=== PATIENT | female | born 1990 | race African-American/Black ===

== ENCOUNTER 2019-07-05 16:17 | Inpatient (IN) | payer OTHER ==
--- NOTE | 2019-07-05 16:47 | PDOC ---
History of Present Illness - General Chief Complaint: Seizure Stated Complaint: Seizure Time Seen by Provider: 07/05/19 16:47 - History of Present Illness Initial Comments: 07/05/19 18:13 29 year old with a history of IDDM, alcohol dependence presents from [facility] detox after having a witnessed seizure. She reports that her last drink was yesterday morning and she normally drinks 1 liter of vodka every day. She reports a headache and some nausea but denies any chest pain, shortness of breath abdominal pain or any other complaints. She denies any recent illness or fevers. She has had seziures in the past and states she had one yesterday while in rehab. She states she has seizures approx 1 every 2 months. She has no other complaints ant desires to go to detox. ROS GENERAL/CONSTITUTIONAL: No fever or chills. No weakness. HEAD, EYES, EARS, NOSE AND THROAT: No change in vision. No ear pain or discharge. No sore throat. CARDIOVASCULAR: No chest pain or shortness of breath RESPIRATORY: No cough, wheezing, or hemoptysis. GASTROINTESTINAL: No vomiting, diarrhea or constipation. GENITOURINARY: No dysuria, frequency, or change in urination. MUSCULOSKELETAL: No joint or muscle swelling or pain. No neck or back pain. SKIN: No rash NEUROLOGIC: No vertigo, loss of consciousness, or change in strength/sensation. PE GENERAL: Awake, alert, and fully oriented, in no acute distress HEAD: No signs of trauma, normocephalic, atraumatic EYES: PERRLA, EOMI, sclera anicteric, conjunctiva clear ENT: blood around the oropharynx NECK: Normal ROM, supple LUNGS: No distress, speaks full sentences, clear to auscultation anteriorly HEART: Regular rate and rhythm, normal S1 and S2, no murmurs, rubs or gallops, peripheral pulses normal and equal bilaterally. ABDOMEN: Soft, nontender, normoactive bowel sounds. No guarding, no rebound. No masses EXTREMITIES : Normal inspection, Normal range of motion, no edema. No clubbing or cyanosis. NEUROLOGICAL: Cranial nerves II through XII grossly intact. Normal speech, no focal sensorimotor deficits SKIN: Warm, Dry, normal turgor, no rashes or lesions noted MDM 29 year old with a history of IDDM, alcohol dependence presents from [facility] detox after having a witnessed seizure. She reports that her last drink was yesterday morning and she normally drinks 1 liter of vodka every day. DDX including but not limited to: alcohol withdrawal seizure r.o intracranial pathology W/U: - cbc, cmp, serum preg, ekg, cxr, head ct, lactic, coags TX: - librium, ativan, banana bag ED Course: Patient with witnessed seizure in the ED ativan, librium and banana bag given, fingerstick done -120s labs within normal etoh at 45.[address] without acute intracranial pathology EKG: sinus tachy at 108 bpm plan for admission for multiple etoh withdrawal seizures Natalie Le, PGY2 Emergency Medicine 07/05/19 20:18 07/05/19 20:21 Past History - Past Medical History Allergies/Adverse Reactions: Allergies Allergy/AdvReac Type Severity Reaction Status Date / Time No Known Allergies Allergy Verified 07/05/19 17:07 COPD: No Diabetes: Yes Seizures: Yes - Suicide/Smoking/Psychosocial Hx Smoking History: Never smoked Hx Alcohol Use: Yes Drug/Substance Use Hx: No *Physical Exam - Vital Signs Last Vital Signs Temp Pulse Resp BP Pulse Ox 99.2 F 109 H 18 126/70 100 07/05/19 16:18 07/05/19 16:18 07/05/19 16:18 07/05/19 16:18 07/05/19 16:18 ED Treatment Course - LABORATORY CBC & Chemistry Diagram: 07/05/19 18:05 07/05/19 18:05 *DC/Admit/Observation/Transfer Diagnosis at time of Disposition: Alcohol withdrawal seizure - Discharge Dispostion Condition at time of disposition: Stable Decision to Admit order: Yes - Referrals - Patient Instructions - Post Discharge Activity
[2019-07-05] MEDS ORDERED: FOLIC ACID INJECTION - 1 MG, THIAMINE HCL 100 MG, MULTIVIT INJECTION ADULT 10 ML in SOD... IVPB ONE (18:12)
[2019-07-05] MEDS ORDERED: chlordiazePOXIDE HCL 25 MG CAPSULE PO ONE (18:12)
[2019-07-05 18:20] LABS: BASO % 1.2 % (0-2.0); EOS % 0.3 % (0-4.5); HEMATOCRIT 31.9 % (32.4-45.2); HEMOGLOBIN 10.5 GM/dL (10.7-15.3); LYMPH % 42.1 % (8-40); MCH 28.9 pg (25.7-33.7); MCHC 32.8 g/dl (32.0-36.0); NEUT % 45.4 % (42.8-82.8); PLATELET COUNT 338 K/MM3 (134-434); RBC 3.62 M/mm3 (3.60-5.2); RDW 22.7 % (11.6-15.6); WHITE BLOOD COUNT 6.9 K/mm3 (4.0-10.0)
[2019-07-05] MEDS ORDERED: LORazepam 2 MG/ML SDV VIAL ONE (18:21)
[2019-07-05] MEDS ORDERED: chlordiazePOXIDE HCL 25 MG CAPSULE ONE ×2 (18:21→22:01)
[2019-07-05 18:35] LABS: ALBUMIN 4.2 g/dl (3.4-5.0); ALK PHOS 158 U/L (45-117); ANION GAP 19 MMOL/L (8-16); BILIRUBIN,TOTAL 0.9 mg/dL (0.2-1); BLOOD UREA NITROGEN 3.5 mg/dL (7-18); CALCIUM 8.9 mg/dL (8.5-10.1); CHLORIDE 100 mmol/L (98-107); CO2 19 mmol/L (21-32); CREATININE 0.6 mg/dL (0.55-1.3); GLUCOSE,RANDOM 120 mg/dL (74-106); POTASSIUM 3.6 mmol/L (3.5-5.1); SGOT/AST 171 U/L (15-37); SGPT/ALT 74 U/L (13-61); SODIUM 139 mmol/L (136-145); TOT PROT 8.6 g/dl (6.4-8.2)
--- NOTE | 2019-07-05 19:46 | PDOC ---
Documentation entered by Najma Tomas SCRIBE, acting as scribe for Malini Moscoso DO. Malini Moscoso DO: This documentation has been prepared by the Genoveva ambrocio Adrianna, SCRIBE, under my direction and personally reviewed by me in its entirety. I confirm that the documentation accurately reflects all work, treatment, procedures, and medical decision making performed by me. Attending Attestation - Resident Resident Name: Natalie Le - ED Attending Attestation I have performed the following: I have examined & evaluated the patient, The case was reviewed & discussed with the resident, I agree w/resident's findings & plan - HPI HPI: The patient is a 29 year old female, with a significant PMH of EtOH dependence and IDDM, who presents to the ED BIBA from [facility] s/p seizure. As per [facility], patient was sitting in a chair when she began seizing with active bleeding from the mouth. [facility] staff was able to move the patient to the floor, turn her on her side, and support her neck. [facility] nurse notes the seizure stopped spontaneously, and patient was postictal for a short amount of time. They deny any fall or head contusion, and notes she was alert and able to sit up prior to arrival. She denies any other complaints while in the ED. Allergies: NKA, NKDA Surgical History: None reported Social History: EtOH dependence - Physicial Exam PE: Agree with resident exam. - Critical Care Time Total Critical Care Time: 45 Critical Care Statement: The care of this patient involved high complexity decision making to prevent further life threatening deterioration of the patient 's condition and/or to evaluate & treat vital organ system(s) failure or risk of failure. - Medical Decision Making 29 year old female with alcohol withdrawal seizure, sent form [facility]. Patient had witnessed seizure while in the ED. Plan for benzo, librium, ativan IV, CT head, and admission to medical team for further evaluation.
[2019-07-05 20:57] LABS: ANISOCYTOSIS 3+; MACROCYTOSIS 2+
--- NOTE | 2019-07-05 21:01 | HP ---
Admitting History and Physical - Primary Care Physician PCP: Goyo Russell - Admission History of Present Illness: 29 year old female, with a significant PMH of EtOH dependence and IDDM, who presents to the ED BIBA from [facility] s/p seizure. As per [facility], patient was sitting in a chair when she began seizing with active bleeding from the mouth. [facility] staff was able to move the patient to the floor, turn her on her side, and support her neck. [facility] nurse notes the seizure stopped spontaneously, and patient was postictal for a short amount of time. They deny any fall or head contusion, and notes she was alert and able to sit up prior to arrival. She denies any other complaints while in the ED. - Past Medical History Endocrine: Yes: Diabetes Mellitus - Smoking History Smoking history: Never smoked - Alcohol/Substance Use Hx Alcohol Use: Yes Home Medications - Allergies Allergies/Adverse Reactions: Allergies Allergy/AdvReac Type Severity Reaction Status Date / Time No Known Allergies Allergy Verified 07/05/19 17:07 Physical Examination Vital Signs: Vital Signs Temperature 99.0 F 07/05/19 18:23 Pulse Rate 111 H 07/05/19 18:23 Respiratory Rate 17 07/05/19 18:23 Blood Pressure 140/96 07/05/19 18:23 O2 Sat by Pulse Oximetry (%) 97 07/05/19 18:23 HENT: Yes: WNL Cardiovascular: Yes: Regular Rate and Rhythm Respiratory: Yes: CTA Bilaterally Gastrointestinal: Yes: Normal Bowel Sounds Extremities: Yes: WNL Neurological: Yes: Alert, Oriented Labs: CBC, BMP 07/05/19 18:05 07/05/19 18:05 Problem List - Problems (1) Alcohol withdrawal seizure Assessment/Plan: start librium prn ativan Code(s): F10.239 - ALCOHOL DEPENDENCE WITH WITHDRAWAL, UNSPECIFIED; R56.9 - UNSPECIFIED CONVULSIONS (2) Diabetes Assessment/Plan: monitor Code(s): E11.9 - TYPE 2 DIABETES MELLITUS WITHOUT COMPLICATIONS Assessment/Plan Laboratory Tests 07/05/19 07/05/19 07/05/19 18:05 18:05 18:05 WBC RBC Hgb Hct MCV MCH MCHC RDW Plt Count MPV Absolute Neuts (auto) Neutrophils % Lymphocytes % Monocytes % Eosinophils % Basophils % Nucleated RBC % Anisocytosis Microcytosis Macrocytosis Sodium Potassium Chloride Carbon Dioxide Anion Gap BUN Creatinine Est GFR (CKD-EPI)AfAm Est GFR (CKD-EPI)NonAf POC Glucometer Random Glucose Calcium Total Bilirubin AST ALT Alkaline Phosphatase Total Protein Albumin Serum , Qual Negative Salicylates <1.7 Acetaminophen --noresult-- Alcohol, Quantitative 45.8 H 07/05/19 07/05/19 07/05/19 18:05 18:05 18:43 WBC 6.9 RBC 3.62 Hgb 10.5 L Hct 31.9 L MCV 88.0 MCH 28.9 MCHC 32.8 RDW 22.7 H Plt Count 338 MPV 7.0 L Absolute Neuts (auto) 3.1 Neutrophils % 45.4 Lymphocytes % 42.1 H Monocytes % 11.0 H Eosinophils % 0.3 Basophils % 1.2 Nucleated RBC % 0 Anisocytosis 3+ Microcytosis 2+ Macrocytosis 2+ Sodium 139 Potassium 3.6 Chloride 100 Carbon Dioxide 19 L Anion Gap 19 H BUN 3.5 L Creatinine 0.6 Est GFR (CKD-EPI)AfAm 142.76 Est GFR (CKD-EPI)NonAf 123.17 POC Glucometer 142 Random Glucose 120 H Calcium 8.9 Total Bilirubin 0.9 AST 171 H ALT 74 H Alkaline Phosphatase 158 H Total Protein 8.6 H Albumin 4.2 Serum , Qual Salicylates Acetaminophen Alcohol, Quantitative Active Medications Generic Name Dose Route Start Last Admin Trade Name Hugo PRN Reason Stop Dose Admin Folic Acid 1 mg/ Thiamine HCl 1,000 mls @ 125 mls/hr 07/05/19 18:12 07/05/19 18:20 100 mg/ Multivitamins/Minerals IVPB 07/06/19 02:11 125 mls/hr 10 ml/ Sodium Chloride ONCE ONE Administration Active Medications Generic Name Dose Route Start Last Admin Trade Name Hugo PRN Reason Stop Dose Admin Acetaminophen 650 mg 07/05/19 23:06 07/06/19 00:56 Tylenol - PO 650 mg Q6H PRN Administration FEVER Chlordiazepoxide HCl 50 mg 07/05/19 23:00 07/06/19 11:00 Librium - PO 50 mg [id number] NUBIA Administration Heparin Sodium (Porcine) 5,000 unit 07/05/19 22:00 07/06/19 11:00 Heparin - SQ 5,000 unit BID NUBIA Administration Lorazepam 1 mg 07/05/19 21:08 Ativan Injection - IVPUSH Q6H PRN seizure
[2019-07-05] MEDS ORDERED: LORazepam 2 MG/ML SDV VIAL IVPUSH PRN (21:08)
[2019-07-05] MEDS ORDERED: HEPARIN NA (PORCINE) 5,000 UNITS/ML 1ML VIAL ONE (22:01)
[2019-07-05] MEDS: HEPARIN NA (PORCINE) 5,000 UNITS/ML 1ML VIAL SQ SCH (22:09)
[2019-07-05] MEDS: chlordiazePOXIDE HCL 25 MG CAPSULE PO SCH (23:16)
[2019-07-06] MEDS ORDERED: ACETAMINOPHEN 325 MG TABLET (FP) ONE ×2 (00:54→21:01)
[2019-07-06] MEDS: ACETAMINOPHEN 325 MG TABLET (FP) PO PRN ×2 (00:56→21:05)
[2019-07-06] MEDS ORDERED: chlordiazePOXIDE 5 MG CAPSULE ONE ×2 (05:41→05:44)
[2019-07-06] MEDS: chlordiazePOXIDE HCL 25 MG CAPSULE PO SCH ×4 (05:45→23:22)
[2019-07-06] MEDS ORDERED: chlordiazePOXIDE HCL 25 MG CAPSULE ONE ×3 (05:45→18:15)
[2019-07-06 07:36] LABS: COCAINE, UR NEGATIVE ng/ml (CUTOFF=300); METHADONE, UR NEGATIVE ng/ml (CUTOFF=300); OPIATES, URI NEGATIVE ng/ml (CUTOFF=300); PHENCYCLIDINE,URINE NEGATIVE ng/ml (CUTOFF=25); URINE AMPHETAMINES NEGATIVE ng/ml (CUTOFF=500); URINE BARBITURATES NEGATIVE ng/ml (CUTOFF=200)
[2019-07-06 07:43] LABS: URINE BENZODIAZEPINES POSITIVE ng/ml (CUTOFF=200)
[2019-07-06 07:49] LABS: BASO % 1.1 % (0-2.0); EOS % 0.4 % (0-4.5); HEMATOCRIT 30.2 % (32.4-45.2); HEMOGLOBIN 10.2 GM/dL (10.7-15.3); LYMPH % 25.2 % (8-40); MCH 29.3 pg (25.7-33.7); MCHC 33.8 g/dl (32.0-36.0); MEAN CELL VOLUME 86.5 fl (80-96); MEAN PLT VOLUME 7.3 fl (7.5-11.1); MONO % 8.7 % (3.8-10.2); NEUT % 64.6 % (42.8-82.8); PLATELET COUNT 242 K/MM3 (134-434); RBC 3.49 M/mm3 (3.60-5.2); RDW 22.1 % (11.6-15.6); WHITE BLOOD COUNT 6.3 K/mm3 (4.0-10.0)
[2019-07-06 08:08] LABS: BILIRUBIN,TOTAL 3.1 mg/dL (0.2-1); BLOOD UREA NITROGEN 3.4 mg/dL (7-18); CALCIUM 8.6 mg/dL (8.5-10.1); CREATININE 0.5 mg/dL (0.55-1.3); POTASSIUM 3.5 mmol/L (3.5-5.1); TOT PROT 7.8 g/dl (6.4-8.2)
[2019-07-06 08:17] LABS: EPI CELLS 19.9 /HPF (0-5/HPF); HYALINE CASTS 19 /lpf (0-8); URINE APPEARANCE CLOUDY; URINE BACTERIA 708.8 /hpf (NEGATIVE); URINE BILIRUBIN NEGATIVE (NEGATIVE); URINE COLOR YELLOW; URINE GLUCOSE (UA) NEGATIVE (NEGATIVE); URINE KETONE NEGATIVE (NEGATIVE); URINE LEUK ESTERASE TRACE (NEGATIVE); URINE NITRITE NEGATIVE (NEGATIVE); URINE PROTEIN NEGATIVE (NEGATIVE); URINE RBC 2 /hpf (0-4); URINE WBC 30 /hpf (0-5)
[2019-07-06] MEDS: HEPARIN NA (PORCINE) 5,000 UNITS/ML 1ML VIAL SQ SCH ×2 (11:00→22:55)
[2019-07-06] MEDS ORDERED: HEPARIN NA (PORCINE) 5,000 UNITS/ML 1ML VIAL ONE (11:56)
--- NOTE | 2019-07-06 16:12 | EKG ---
Test Reason : Blood Pressure : / mmHG Vent. Rate : 108 BPM Atrial Rate : 108 BPM P-R Int : 150 ms QRS Dur : 072 ms QT Int : 338 ms P-R-T Axes : 054 022 047 degrees QTc Int : 452 ms SINUS TACHYCARDIA POSSIBLE LEFT ATRIAL ENLARGEMENT BORDERLINE ECG NO PREVIOUS ECGS AVAILABLE Confirmed by MD SETH, MER ([id number]) on 07/06/2019 4:11:57 PM Referred By: Confirmed By:MER ANN MD
--- NOTE | 2019-07-06 16:59 | PN ---
Progress Note, Physician - Current Medication List Current Medications: Active Medications Acetaminophen (Tylenol -) 650 mg PO Q6H PRN PRN Reason: FEVER Last Admin: 07/06/19 00:56 Dose: 650 mg Chlordiazepoxide HCl (Librium -) 50 mg PO [id number] NUBIA Last Admin: 07/06/19 11:00 Dose: 50 mg Heparin Sodium (Porcine) (Heparin -) 5,000 unit SQ BID NUBIA Last Admin: 07/06/19 11:00 Dose: 5,000 unit Lorazepam (Ativan Injection -) 1 mg IVPUSH Q6H PRN PRN Reason: seizure - Objective Vital Signs: Vital Signs Temperature 98.5 F 07/06/19 06:40 Pulse Rate 100 H 07/06/19 14:00 Respiratory Rate 17 07/06/19 14:00 Blood Pressure 130/88 07/06/19 14:00 O2 Sat by Pulse Oximetry (%) 100 07/06/19 14:00 Constitutional: Yes: No Distress HENT: Yes: Atraumatic Neck: Yes: Supple Cardiovascular: Yes: Regular Rate and Rhythm Respiratory: Yes: CTA Bilaterally Gastrointestinal: Yes: Normal Bowel Sounds Extremities: Yes: WNL Edema: No Peripheral Pulses WNL: Yes Neurological: Yes: Alert, Oriented Labs: CBC, BMP 07/06/19 07:00 07/06/19 07:00 Problem List - Problems (1) Alcohol withdrawal seizure Assessment/Plan: on librium prn ativan Code(s): F10.239 - ALCOHOL DEPENDENCE WITH WITHDRAWAL, UNSPECIFIED; R56.9 - UNSPECIFIED CONVULSIONS (2) Diabetes Assessment/Plan: monitor Code(s): E11.9 - TYPE 2 DIABETES MELLITUS WITHOUT COMPLICATIONS
--- NOTE | 2019-07-06 17:58 | DS ---
Physical Examination Vital Signs: Vital Signs Temperature 98.5 F 07/06/19 06:40 Pulse Rate 100 H 07/06/19 14:00 Respiratory Rate 17 07/06/19 14:00 Blood Pressure 130/88 07/06/19 14:00 O2 Sat by Pulse Oximetry (%) 100 07/06/19 14:00 Constitutional: Yes: No Distress HENT: Yes: Atraumatic Neck: Yes: Supple Cardiovascular: Yes: Regular Rate and Rhythm Respiratory: Yes: CTA Bilaterally Gastrointestinal: Yes: Normal Bowel Sounds Extremities: Yes: WNL Edema: No Neurological: Yes: Alert, Oriented Labs: CBC, BMP 07/06/19 07:00 07/06/19 07:00 Discharge Summary Reason For Visit: ALCOHOL WITHDRAWAL SEIZURE Current Active Problems Alcohol withdrawal seizure (Acute) Diabetes (Acute) Condition: Stable - Instructions Diet, Activity, Other Instructions: to [facility] for detox - Home Medications Comprehensive Discharge Medication List: dc to [facility] for detox
[2019-07-06] MEDS ORDERED: methylPREDNISolone NA SUCC 40 MG/1 ML VIAL ONE (18:56)
[2019-07-07 01:18] VITALS: BMI 24.0
[2019-07-07] MEDS: ACETAMINOPHEN 325 MG TABLET (FP) PO PRN (05:35)
[2019-07-07] MEDS: chlordiazePOXIDE HCL 25 MG CAPSULE PO SCH ×4 (05:35→23:01)
[2019-07-07] MEDS: HEPARIN NA (PORCINE) 5,000 UNITS/ML 1ML VIAL SQ SCH ×2 (11:02→21:13)
--- NOTE | 2019-07-07 13:07 | CONSULT ---
Consult Detox [facility] Reason for Current Admission/Consult: Patient was admitted from [facility] after suffering a seizure. Referred by:: Drew - History History of Present Illness: 29 year old female with history of alcohol dependence. She has been drinking heavily for the past 5 years but never suffered a seizure from withdrawals. She stated that her last drink was 2 days prior to her incident at [facility]. While in assessment for admission to detox, she apparently had a seizure and was in postictal state and then tansferred to [facility]. She has been here since 07/05/19. Her PMH is significant for IDDM and she is on injectable insulin as well as fast acting insulin prior to meals. - History Source History Provided By: Patient Limitations to Obtaining History: No Limitations - Alcohol/Substance Use Hx Alcohol Use: Yes (1 pint of vodka or heavy liquor per day.) Hx Substance Use: No Hx Substance Use Treatment: No - Current Drug/Alcohol Use Alcohol Route: Oral Frequency: Daily Amount used: 1pint per day Age of first use: 17 Date of Last Use: 07/02/19 - Past Medical History ...LMP: 05/26/19 ...: No Endocrine: Yes: Diabetes Mellitus - Significant Medical Findings: Patient is alert and oriented x3 at this time. She has some lacerations on her lips with bruising. cor: S1, S2, no murmurs or gallops, RRR Lungs: clear to auscultation B/L Abd: Benign, positive bowel sounds. Ext: FROM, good pulses B/L CIWA Score - CIWA Score Nausea/Vomitin-Mild Nausea/No Vomiting Muscle Tremors: 1-None Visible, but [place] Anxiety: 0-No Anxiety, at Ease Agitation: 1-Slight > Activity Paroxysmal Sweats: No Perspiration Orientation: 0-Oriented Tacttile Disturbances: 0-None Auditory Disturbances: 0-None Visual Disturbances: 0-None Headache: 1-Very Mild CIWA-Ar Total Score: 4 Assessment Plan - Diagnosis (1) Alcohol withdrawal seizure Status: Acute (2) Diabetes Status: Acute - Plan Plan: 1. Seizure: Not clear if patient had seizure from withdrawal of alcohol alone. Unlikely that it was a seizure secondary to hypoglycemia as FS at [facility] was normal. No history of seizure in the past. She might benefit from EEG to rule out a primary seizure disorder. It is more likely that it was a withdrawal seizure. 2. Alcohol Dependence with complicated withdrawal: She can be transferred if she is medically stable now for continuation of detox or entry into rehab. Continue Librium until discharge and transfer. 3. IDDM: She is being covered now with injectable insulins. She will need ongoing primary care upon discharge to help her monitor and manage her IDDM. Dr. Goodwin - Medication Detox Regimen/Protocol: Librium (can be transferred to continue librium detox.)
--- NOTE | 2019-07-07 18:57 | PN ---
Progress Note, Physician History of Present Illness: doing well - Current Medication List Current Medications: Active Medications Acetaminophen (Tylenol -) 650 mg PO Q6H PRN PRN Reason: FEVER Last Admin: 07/07/19 05:35 Dose: 650 mg Chlordiazepoxide HCl (Librium -) 50 mg PO [id number] NUBIA Last Admin: 07/07/19 16:35 Dose: 50 mg Heparin Sodium (Porcine) (Heparin -) 5,000 unit SQ BID NUBIA Last Admin: 07/07/19 11:02 Dose: 5,000 unit Lorazepam (Ativan Injection -) 1 mg IVPUSH Q6H PRN PRN Reason: seizure - Objective Vital Signs: Vital Signs Temperature 97.9 F 07/07/19 13:36 Pulse Rate 101 H 07/07/19 13:36 Respiratory Rate 16 07/07/19 13:36 Blood Pressure 118/70 07/07/19 13:36 O2 Sat by Pulse Oximetry (%) 100 07/07/19 09:00 Constitutional: Yes: No Distress HENT: Yes: Atraumatic Neck: Yes: Supple Cardiovascular: Yes: Regular Rate and Rhythm Respiratory: Yes: CTA Bilaterally Gastrointestinal: Yes: Normal Bowel Sounds Extremities: Yes: WNL Edema: No Peripheral Pulses WNL: Yes Neurological: Yes: Alert, Oriented Labs: CBC, BMP 07/06/19 07:00 07/06/19 07:00 Problem List - Problems (1) Alcohol withdrawal seizure Assessment/Plan: on librium protocol prn ativan will order eeg as per detox md recommendation Code(s): F10.239 - ALCOHOL DEPENDENCE WITH WITHDRAWAL, UNSPECIFIED; R56.9 - UNSPECIFIED CONVULSIONS (2) Diabetes Assessment/Plan: monitor Code(s): E11.9 - TYPE 2 DIABETES MELLITUS WITHOUT COMPLICATIONS
[2019-07-08] MEDS: chlordiazePOXIDE HCL 25 MG CAPSULE PO SCH ×3 (05:07→17:33)
[2019-07-08] MEDS: HEPARIN NA (PORCINE) 5,000 UNITS/ML 1ML VIAL SQ SCH (10:23)
--- NOTE | 2019-07-08 14:06 | DS ---
Physical Examination Vital Signs: Vital Signs Temperature 99.0 F 07/08/19 13:47 Pulse Rate 99 H 07/08/19 13:47 Respiratory Rate 16 07/08/19 13:47 Blood Pressure 110/60 07/08/19 13:47 O2 Sat by Pulse Oximetry (%) 99 07/08/19 09:00 Labs: CBC, BMP 07/06/19 07:00 07/06/19 07:00 Discharge Summary Reason For Visit: ALCOHOL WITHDRAWAL SEIZURE Current Active Problems Alcohol withdrawal seizure (Acute) Diabetes (Acute) Condition: Stable - Instructions Diet, Activity, Other Instructions: to [facility] for detox eeg can be done as out patient dr power aware of discharge - Home Medications Comprehensive Discharge Medication List: Ambulatory Orders Humalog 07/07/19 Levemir Vial 10 units SQ DAILY 07/07/19 dr power aware of dc
--- NOTE | 2019-07-08 19:36 | PN ---
Progress Note, Physician History of Present Illness: doing well - Current Medication List Current Medications: Active Medications Acetaminophen (Tylenol -) 650 mg PO Q6H PRN PRN Reason: FEVER Last Admin: 07/07/19 05:35 Dose: 650 mg Chlordiazepoxide HCl (Librium -) 25 mg PO [id number] NUBIA Last Admin: 07/08/19 17:33 Dose: 25 mg Heparin Sodium (Porcine) (Heparin -) 5,000 unit SQ BID NUBIA Last Admin: 07/08/19 10:23 Dose: 5,000 unit Lorazepam (Ativan Injection -) 1 mg IVPUSH Q6H PRN PRN Reason: seizure - Objective Vital Signs: Vital Signs Temperature 98.5 F 07/08/19 17:35 Pulse Rate 102 H 07/08/19 17:35 Respiratory Rate 18 07/08/19 17:35 Blood Pressure 125/69 07/08/19 17:35 O2 Sat by Pulse Oximetry (%) 99 07/08/19 09:00 Constitutional: Yes: No Distress HENT: Yes: Atraumatic Neck: Yes: Supple Cardiovascular: Yes: Regular Rate and Rhythm Respiratory: Yes: CTA Bilaterally Gastrointestinal: Yes: Normal Bowel Sounds Extremities: Yes: WNL Edema: No Peripheral Pulses WNL: Yes Neurological: Yes: Alert, Oriented Labs: CBC, BMP 07/06/19 07:00 07/06/19 07:00 Problem List - Problems (1) Alcohol withdrawal seizure Assessment/Plan: on librium protocol prn ativan Code(s): F10.239 - ALCOHOL DEPENDENCE WITH WITHDRAWAL, UNSPECIFIED; R56.9 - UNSPECIFIED CONVULSIONS (2) Diabetes Assessment/Plan: monitor Code(s): E11.9 - TYPE 2 DIABETES MELLITUS WITHOUT COMPLICATIONS Assessment/Plan awaiting bed at [facility]
[2019-07-09] MEDS: HEPARIN NA (PORCINE) 5,000 UNITS/ML 1ML VIAL SQ SCH ×3 (00:06→22:27)
[2019-07-09] MEDS: chlordiazePOXIDE HCL 25 MG CAPSULE PO SCH ×5 (00:07→22:27)
[2019-07-09] MEDS ORDERED: INSULIN (LEVEMIR) 100 UNITS/ML UNITS SQ SCH (09:45)
--- NOTE | 2019-07-09 11:46 | DS ---
Physical Examination Vital Signs: Vital Signs Temperature 98.0 F 07/09/19 09:00 Pulse Rate 95 H 07/09/19 09:00 Respiratory Rate 18 07/09/19 09:00 Blood Pressure 120/66 07/09/19 09:00 O2 Sat by Pulse Oximetry (%) 100 07/09/19 09:00 Constitutional: Yes: No Distress HENT: Yes: Atraumatic Neck: Yes: Supple Cardiovascular: Yes: Regular Rate and Rhythm Respiratory: Yes: CTA Bilaterally Gastrointestinal: Yes: Normal Bowel Sounds Extremities: Yes: WNL Edema: No Neurological: Yes: Alert, Oriented Labs: CBC, BMP 07/06/19 07:00 07/06/19 07:00 Discharge Summary Reason For Visit: ALCOHOL WITHDRAWAL SEIZURE Current Active Problems Alcohol withdrawal seizure (Acute) Diabetes (Acute) Condition: Stable - Instructions Diet, Activity, Other Instructions: to [facility] eeg done fu neurologist dr power aware of discharge Referrals: Aravind Nunez MD [Staff Physician] - Disposition: HOME - Home Medications Comprehensive Discharge Medication List: Ambulatory Orders Humalog 07/07/19 Levemir Vial 10 units SQ DAILY 07/07/19 dr power aware [facility] to [facility] ..awaiting bed
[2019-07-09] MEDS ORDERED: INSULIN (NOVOLOG) ASPART 100 UNITS/ML 10ML VIAL SQ ONE (22:15)
[2019-07-10] MEDS: chlordiazePOXIDE HCL 25 MG CAPSULE PO SCH ×2 (05:37→10:34)
[2019-07-10] MEDS: INSULIN (LEVEMIR) 100 UNITS/ML UNITS SQ SCH (06:51)
[2019-07-10] MEDS: HEPARIN NA (PORCINE) 5,000 UNITS/ML 1ML VIAL SQ SCH ×2 (10:34→21:13)
[2019-07-10] MEDS ORDERED: chlordiazePOXIDE HCL 25 MG CAPSULE PO PRN (11:44)
--- NOTE | 2019-07-10 11:44 | PN ---
Progress Note, Physician - Current Medication List Current Medications: Active Medications Acetaminophen (Tylenol -) 650 mg PO Q6H PRN PRN Reason: FEVER Last Admin: 07/07/19 05:35 Dose: 650 mg Chlordiazepoxide HCl (Librium -) 25 mg PO [id number] [facility] Last Admin: 07/10/19 10:34 Dose: 25 mg Heparin Sodium (Porcine) (Heparin -) 5,000 unit SQ BID [facility] Last Admin: 07/10/19 10:34 Dose: 5,000 unit Insulin Detemir (Levemir Vial) 10 units SQ ACBK [facility] Last Admin: 07/10/19 06:51 Dose: 10 units Lorazepam (Ativan Injection -) 1 mg IVPUSH Q6H PRN PRN Reason: seizure - Objective Vital Signs: Vital Signs Temperature 97.9 F 07/10/19 10:36 Pulse Rate 82 07/10/19 10:36 Respiratory Rate 16 07/10/19 10:36 Blood Pressure 102/57 L 07/10/19 10:36 O2 Sat by Pulse Oximetry (%) 100 07/10/19 10:00 Constitutional: Yes: No Distress HENT: Yes: Atraumatic Neck: Yes: Supple Cardiovascular: Yes: Regular Rate and Rhythm Respiratory: Yes: CTA Bilaterally Gastrointestinal: Yes: Normal Bowel Sounds Extremities: Yes: WNL Edema: No Neurological: Yes: Alert, Oriented Labs: CBC, BMP 07/06/19 07:00 07/06/19 07:00 Problem List - Problems (1) Alcohol withdrawal seizure Assessment/Plan: on librium prn stable Code(s): F10.239 - ALCOHOL DEPENDENCE WITH WITHDRAWAL, UNSPECIFIED; R56.9 - UNSPECIFIED CONVULSIONS (2) Diabetes Assessment/Plan: monitor Code(s): E11.9 - TYPE 2 DIABETES MELLITUS WITHOUT COMPLICATIONS Assessment/Plan awaiting bed at [facility]
[2019-07-10 13:18] LABS: BASO % 0.8 % (0-2.0); EOS % 3.3 % (0-4.5); HEMATOCRIT 30.5 % (32.4-45.2); HEMOGLOBIN 10.1 GM/dL (10.7-15.3); LYMPH % 26.6 % (8-40); MCH 29.3 pg (25.7-33.7); MCHC 33.1 g/dl (32.0-36.0); MEAN CELL VOLUME 88.6 fl (80-96); MEAN PLT VOLUME 7.8 fl (7.5-11.1); MONO % 16.9 % (3.8-10.2); NEUT % 52.4 % (42.8-82.8); PLATELET COUNT 169 K/MM3 (134-434); RBC 3.44 M/mm3 (3.60-5.2); RDW 22.5 % (11.6-15.6); WHITE BLOOD COUNT 4.5 K/mm3 (4.0-10.0)
[2019-07-10] MEDS: INSULIN SLIDING SCALE (NOVOLOG) 1 VIAL SQ SCH ×3 (13:38→21:14)
[2019-07-10 13:56] LABS: ALBUMIN 3.7 g/dl (3.4-5.0); BILIRUBIN,TOTAL 0.7 mg/dL (0.2-1); BLOOD UREA NITROGEN 7.6 mg/dL (7-18); CALCIUM 9.1 mg/dL (8.5-10.1); CREATININE 0.6 mg/dL (0.55-1.3); POTASSIUM 4.5 mmol/L (3.5-5.1); TOT PROT 7.8 g/dl (6.4-8.2)
[2019-07-10 14:02] LABS: ANISOCYTOSIS 1+; MACROCYTOSIS 1+; PLATELET ESTIMATE NORMAL; TARGET CELLS 1+; TEAR DROP CELLS 1+
[2019-07-10] MEDS ORDERED: INSULIN SLIDING SCALE (NOVOLOG) 1 VIAL SQ SCH (16:30)
[2019-07-10] MEDS ORDERED: INSULIN (NOVOLOG) ASPART 100 UNITS/ML 10ML VIAL ONE (21:00)
[2019-07-11] MEDS: INSULIN SLIDING SCALE (NOVOLOG) 1 VIAL SQ SCH ×4 (06:33→21:09)
[2019-07-11] MEDS: INSULIN (LEVEMIR) 100 UNITS/ML UNITS SQ SCH (06:34)
[2019-07-11] MEDS ORDERED: INSULIN (NOVOLOG) ASPART 100 UNITS/ML 10ML VIAL ONE ×2 (08:33→19:58)
[2019-07-11] MEDS: HEPARIN NA (PORCINE) 5,000 UNITS/ML 1ML VIAL SQ SCH ×2 (09:02→21:09)
[2019-07-11] MEDS: ACETAMINOPHEN 325 MG TABLET (FP) PO PRN (10:57)
--- NOTE | 2019-07-11 13:52 | PN ---
Progress Note, Physician History of Present Illness: doing well - Current Medication List Current Medications: Active Medications Acetaminophen (Tylenol -) 650 mg PO Q6H PRN PRN Reason: FEVER Last Admin: 07/11/19 10:57 Dose: 650 mg Chlordiazepoxide HCl (Librium -) 25 mg PO [id number] PRN PRN Reason: AGITATION Heparin Sodium (Porcine) (Heparin -) 5,000 unit SQ BID NUBIA Last Admin: 07/11/19 09:02 Dose: 5,000 unit Insulin Aspart (Novolog Vial Sliding Scale -) 1 vial SQ ACHS [facility]; Protocol Last Admin: 07/11/19 11:42 Dose: 6 units Insulin Detemir (Levemir Vial) 10 units SQ ACBK [facility] Last Admin: 07/11/19 06:34 Dose: 10 units Lorazepam (Ativan Injection -) 1 mg IVPUSH Q6H PRN PRN Reason: seizure - Objective Vital Signs: Vital Signs Temperature 98.9 F 07/11/19 08:13 Pulse Rate 92 H 07/11/19 08:13 Respiratory Rate 18 07/11/19 09:00 Blood Pressure 115/61 07/11/19 08:13 O2 Sat by Pulse Oximetry (%) 100 07/11/19 09:00 Constitutional: Yes: No Distress HENT: Yes: Atraumatic Neck: Yes: Supple Cardiovascular: Yes: Regular Rate and Rhythm Respiratory: Yes: CTA Bilaterally Gastrointestinal: Yes: Normal Bowel Sounds Extremities: Yes: WNL Edema: No Peripheral Pulses WNL: Yes Neurological: Yes: Alert, Oriented Labs: CBC, BMP 07/10/19 13:05 07/10/19 13:05 Problem List - Problems (1) Alcohol withdrawal seizure Assessment/Plan: on librium prn stable Code(s): F10.239 - ALCOHOL DEPENDENCE WITH WITHDRAWAL, UNSPECIFIED; R56.9 - UNSPECIFIED CONVULSIONS (2) Diabetes Assessment/Plan: monitor Code(s): E11.9 - TYPE 2 DIABETES MELLITUS WITHOUT COMPLICATIONS
[2019-07-12] MEDS: INSULIN SLIDING SCALE (NOVOLOG) 1 VIAL SQ SCH ×2 (06:44→12:10)
[2019-07-12] MEDS: INSULIN (LEVEMIR) 100 UNITS/ML UNITS SQ SCH (06:44)
[2019-07-12] MEDS ORDERED: INSULIN (NOVOLOG) ASPART 100 UNITS/ML 10ML VIAL ONE (07:07)
[2019-07-12] MEDS: HEPARIN NA (PORCINE) 5,000 UNITS/ML 1ML VIAL SQ SCH (09:35)
[2019-07-12 14:08] VITALS: BP 139/87; PULSE 88; TEMP 97.3
[2019-07-12] MEDS: ACETAMINOPHEN 325 MG TABLET (FP) PO PRN (14:20)
--- NOTE | 2019-07-12 16:34 | DS ---
Physical Examination Vital Signs: Vital Signs Temperature 97.3 F L 07/12/19 14:05 Pulse Rate 88 07/12/19 14:05 Respiratory Rate 20 07/12/19 14:05 Blood Pressure 139/87 07/12/19 14:05 O2 Sat by Pulse Oximetry (%) 100 07/12/19 09:00 Constitutional: Yes: No Distress HENT: Yes: Atraumatic Neck: Yes: Supple Cardiovascular: Yes: Regular Rate and Rhythm Respiratory: Yes: CTA Bilaterally Gastrointestinal: Yes: Normal Bowel Sounds Extremities: Yes: WNL Neurological: Yes: Alert, Oriented Labs: CBC, BMP 07/10/19 13:05 07/10/19 13:05 Discharge Summary Reason For Visit: ALCOHOL WITHDRAWAL SEIZURE Condition: Stable - Instructions Diet, Activity, Other Instructions: [facility] eeg done fu neurologist dr power aware of discharge Referrals: Aravind Nunez MD [Staff Physician] - Disposition: HOME - Home Medications Comprehensive Discharge Medication List: Ambulatory Orders Humalog 07/07/19 Levemir Vial 10 units SQ DAILY 07/07/19 dc home
== END 2019-07-12 15:44 | disposition home or self-care (01) | DRG 775 ==
LOC: JER 16:17 → JERBED 20:52 → J4S 07-06 21:47 → J7W 07-10 18:43
PROVIDERS: ADMIT Internal Medicine; ATTEND Internal Medicine
PROC: HZ2ZZZZ Detoxification Services for Substance Abuse Treatment (ICD-10-PCS; principal; 2019-07-05)
DX: F10.231 Alcohol dependence with withdrawal delirium (principal); R56.9 Unspecified convulsions; E11.9 Type 2 diabetes mellitus without complications; F10.239 Alcohol dependence with withdrawal, unspecified; R00.0 Tachycardia, unspecified; Z79.4 Long term (current) use of insulin
CPT/HCPCS: 36415; 70450-TC; 71045-TC-FY; 80053; 80307; 81003; 82962; 84484; 84703; 85025; 87086; 93005; 93010; 95816; 99285-25; J1644; J7030